=== PATIENT | female | born 1955 | race Caucasian/White ===

== ENCOUNTER 2019-12-07 17:19 | Inpatient (IN) | payer MEDICARE ==
[~2019-12-07] VITALS: Ht 170.2 cm; Wt 59.9 kg
[~2019-12-07 17:19] MED LIST: BACLOFEN10 MG PO; CETIRIZINE HCL5 MG PO; CLARITIN 10 MG10 MG PO; FLUTICASONE PRO16 GM NASAL; IMITREX100 MG PO; KLONOPIN1 MG PO; LEVAQUIN500 MG PO; NEURONTIN 300300 MG PO; PHENERGAN25 M1 PO; PRENATAL LOW IR1 TAB PO; PROBIOTIC1 EAC1 PO; RESTASIS EYE DR30 EA EACH EYE; SEROQUEL200 MG PO; TRAZODONE HCL150 MG PO; VITAMIN D5000 UNIT PO; VITAMIN E400 UNI2 PO; VOLTAREN100 GM TOPICAL; VOLTAREN75 MG PO
--- NOTE | 2019-12-07 19:35 | NUR ---
PT DIRECT ADMIT FROM [facility] AT 1855, ARRIVED VIA WC ACCOMPANIED BY AND REHAB NURSE, TRANSFERED SELF FROM WC TO BED, PT SBA ADJUSTED SELF IN BED, NON OPERABLE FRACTURED PELVIS, WBAT, REG DIET, RESPIRATIONS EVEN/UNLABORED, FALL PRECAUTIONS IN PLACE, FLUIDS/CALL LIGHT WITHIN REACH,
[2019-12-07 21:41] VITALS: BP 154/72
[2019-12-08 02:14] VITALS: BP 154/72; BMI 20.8
--- NOTE | 2019-12-08 06:39 | NUR ---
PT GOT UP DURING THE NIGHT CRYING, NOT TALKING OR FOLLOWING REQUEST, IN OBVIOUS PAIN BUT REFUSED TO TALK TO US, KEPT PT BEHIND NURSES STATION FOR OBSERVATION, AT 0300 PT HAD TO TOILET, TOOK TO HER ROOM GAVE KLONOPIN PLACED IN BED WHERE SHE SLEPT, LIKE FLIPPING A LIGHT SWITCH, PT IS BIPOLAR MANIC/DEPRESSIVE
[2019-12-08 07:44] VITALS: BP 139/68
[2019-12-08 07:50] LABS: HEMATOCRIT 35.4 % (36.0-48.0); HEMOGLOBIN 12.2 g/dL (12-16); LYMPHOCYTES 16.5 % (15-50); MCH 32.9 pg (26.0-34.0); MCHC 34.5 g/dL (31.0-37.0); MCV 95.4 fL (80.0-100.0); MEAN PLATELET VOLUME 9.5 fL (7.4-10.4); PLATELET COUNT 288 10x3/uL (130-400); RBC 3.71 10x6/uL (4.00-5.40); RDW 12.5 % (11.5-14.5); WBC 11.3 10x3/uL (4.8-10.8)
[2019-12-08 08:00] LABS: CALC OSMOLALITY 256 mosm/kg (275-300); CALCIUM 8.2 mg/dL (8.5-10.1); CARBON DIOXIDE 19.8 mmol/L (21.0-32.0); CHLORIDE - SERUM 94 mmol/L (98-107); CREATININE - SERUM 0.5 mg/dL (0.6-1.3); GLUCOSE 103 mg/dL (74-106); POTASSIUM - SERUM 3.6 mmol/L (3.5-5.1); SODIUM 128 mmol/L (136-145); UREA NITROGEN 13 mg/dL (7-18); eGFR NON AFRICAN AMERICAN > 90 mL/min (90-120)
--- NOTE | 2019-12-08 12:37 | NUR ---
GRIMACED WITH TRANSFER. NURSE ATTEMPTED TO GIVE HER PAIN MEDS BUT SHE WOULD NOT ACCEPT IT. SHE WOULD NOT TALK OR FOLLOW COMMANDS OR MAKE EYE CONTACT. CALL LIGHT IN REACH
--- NOTE | 2019-12-08 13:40 | NUR ---
CAME UP HERE AT CASE COORDINATION REQUEST TO WORK WITH PT. SHE WILL NOT ANSWER OR FOLLOW HIS REQUESTS. HE TRIED TO GET HER TO EAT AND DRINK SOMETHING BUT SHE REFUSED. SHE ACTS LIKE SHE IS HURTING THE SUDDENLY STOPS ACTING THAT WAY AND WILL CLOSE HER EYES AND LEAN HER HEAD DOWN........ SAID SHE HAS NEVER ACTED THIS WAY BEFORE. DR ALLEN NOTIFIED OF PT BEHAVIOR AND HE WILL MAKE REFERRAL TO LONGTERM
[2019-12-08 13:51] VITALS: Ht 170.2 cm; Wt 59.9 kg
--- NOTE | 2019-12-08 15:58 | NUR ---
DR SHELTON CALLED BACK AND SAID HE WAS NOT LIQUEFACTION SUPERVISOR BUT OFFERED SUGGESTIONS FOR PT. DR ALLEN BACK ON FLOOR AND SAID NO PROBLEM TO DR SHELTON NOT BEING ABLE TO SEE PT. . DR HERMOSILLO FROM PSYCH CAME OVER TO EVALUATE PT. HE REPORTED THAT HE OFFERED ADMISSION TO PSYCH UNIT TO PT BUT WHO WAS SITTING WITH HER DECLINED ADMISSION.
--- NOTE | 2019-12-08 20:03 | NUR ---
PT ASLEEP NO IMMEDIATE NEEDS NOTED, RESPIRATIONS EVEN/UNLABORED, FALL PRECAUTIONS IN PLACE, FLUIDS/CALL LIGHT WITHIN REACH
--- NOTE | 2019-12-08 23:20 | NUR ---
CALLED TO ROOM PER STUDENT NURSE. NOTED AMAN STANDING UP IN ROOM, SWEATING A LITTLE AND SPEAKING INCOHENTLTY ABOUT DYING, POOPING HER PANTS, AND GETTING PREGRANT. ATTEMPTED TO HAVE PATIENT SIT BACK DOWN ON BED BUT SHE REFUSED. SHE STATED " I CANT SIT DOWN I HAVE TO POOP MY PANTS." I OFFRERED TO TAKE HER TO THE BATHROOM AND CLEAN HER UP AND SHE REFUSED. I CHECKED HER AND SHE DID NOT APPEAR TO HAVE SOILED HER PANTS. I ENCOURAGED HER TO SIT IN WHEELCHAIR INSTEAD AND SHE AGREED AND COMPLIED. SHE BEGAN TELLING ME ABOUT VARIOUS THINGS BUT RARELY KEPT ON TOPIC. SHE KEPT JUMPING FROM SAYING "I WAS , AND "HE HURT ME" TO, "MY NEIGHBOR SAID I WAS GOING TO HELL FOR WHAT I DID" AND "PLEASE DONT HURT ME". I KEPT REDIRECTING HER AND ASSURED HER WE WOULD NOT HURT HER HERE AND THAT SHE WAS SAFE. I SAW HER CALMING DOWN SOME BUT SHE CONTINUED TO SPEAK IRRACTICALLY. I DID CONVINCE HER TO TAKE HER TRAZADONE AND CLONAZIPAM THAT SHE HAD REFUSED EARLIER. AFTER PUTTING THEM IN HER MOUTH SHE STARED INTO SPACE A MOMENT AND DID NOT SWALLOW THEM. SHE WOULD NOT OPEN HER MOUTH ON COMMAND FOR WATER. AFTER 30 SECONDS SHE SWALLOWED THE PILLS WITHOUT WATER. SHE STATED "I CANT TAKE WATER, I CANT SWALLOW" I ENCOURAGED HER TO TAKE JUST A SIP SO SHE COULD GET HER PILLS DOWN. SHE AGREED AND TOOK A SMALL SIP OF WATER. SHE CONTINUED TO SIT IN WHEELCHAIR AND TALK REPEATING HERSELF OVER AND OVER ABOUT HER NEIGHBOR CALLING HER A SLUT, HER POOPING HER PANTS, AND BEING . AT ONE POINT SHE SAID "I WAS DOUBLE ." SHE CONTINUED TO SAY " I'M , I WAS , AND THEN I POOPED MY PANTS AND NOW I'M ." I TRIED TO ASSURE HER SHE WAS NOT , AND THAT WE WOULD TAKE CARE OF HER. I REMINDED HER SHE WAS SAFE. WE ASSISTED HER BACK TO BED AND FOR NOW SHE IS RESTING QUIETLY. WILL CONTINUE TO MONITOR CLOSELY.
--- NOTE | 2019-12-09 14:30 | NUR ---
PATIENT ADMITTED TO REHAB FROM [facility]. PATIENT UNABLE TO PARTICIPATE IN THERAPY AND AMITTED TO [facility]. DC INSTRUCTIONS FAXED TO JAC , AUTH. # [id number] WITH FAX CONFORMATION RECIEVED. AT BEDSIDE
--- NOTE | 2019-12-09 15:15 | NUR ---
WITH PT AND ASSISTING HER IN THE SHOWER. SHE HAS BEEN MORE INTERACTIVE WITH HIM THE LAST FEW HOURS. THIS MORNING SHE WAS CURSING EVERYONE AND REFUSED V/S, BREAKFAST, MEDS AND VISITORS AND THERAPY. SHE IS TALKING TO MORE.
--- NOTE | 2019-12-09 17:12 | RHP ---
PATIENT: BRUNO PASTOR MEDICAL RECORD: [id number] ACCOUNT: [id number] LOCATION:[place] [address] : 53 ADMISSION DATE: 12/07/19 REHABILITATION HISTORY AND PHYSICAL EXAMINATION POST ADMISSION PHYSICIAN EXAMINATION POST ADMISSION PHYSICAL EXAMINATION AND HISTORY AND PHYSICAL ADMITTING DIAGNOSIS: Pubic ramus fracture. HISTORY OF PRESENT ILLNESS: The patient presented to the Emergency Room at [facility] after falling from bed around 1:00 a.m., she had immediate onset of hip pain and inability to bear weight. She has got a history of a right total hip replacement in the past. She was oriented. X-ray showed a displaced right inferior pubic ramus fracture and underlying osteoporosis. She was admitted for pain control, orthopedic consult and rehab. Ortho felt that the pelvic fracture was nondisplaced, some well healed area to her total hips, so there is no surgical requirement there. Currently, she has had prolonged immobility, progressive generalized weakness, especially the right lower extremity affecting her tolerance to PT, very fatigued, has limited flexion and extension of the lower extremities. Proximal muscle strength is decreased. She has ambulated 50 feet with PT using a rolling walker, would like to regain her strength to return home. COMORBIDITIES: Include allergic rhinitis, anemia, anxiety, bipolar, chronic pain, constipation, depression, difficulty in walking, fibromyalgia, weakness, hematuria, chronic back pain, fibromyalgia, and migraine headaches. PAST MEDICAL HISTORY: Significant for fibromyalgia, osteoporosis, irritable bowel syndrome, falls, migraines, chronic UTIs, anemia, anxiety, and depression. PAST SURGICAL HISTORY: Includes gastric bypass, ankle surgery, total hip. ALLERGIES: MORPHINE AND DEMEROL. CURRENT MEDICATIONS: Include trazodone 150 mg at bedtime, Inderal 20 mg at bedtime, Zofran 4 mg as needed, Topamax 50 mg b.i.d., Effexor 150 mg daily, multivitamin daily, propranolol 10 mg daily, Singulair 10 mg daily, cyclosporine eye drops as needed. She is on Vitamin D 2000 units daily, Imitrex 100 mg q.2 hours p.r.n. severe migraine headache, milk of mag p.r.n. constipation, Percocet 5/325 as needed, Klonopin 0.5 mg b.i.d., ascorbic acid 250 mg every 48 hours, and will probably get her back on her Seroquel during her stay. HABITS: No alcohol or tobacco use. FAMILY HISTORY: Noncontributory. SOCIAL HISTORY: The patient lives at home with her . He works at [employer]. She has recently been quite depressed on her current situation. REVIEW OF SYSTEMS: GENERAL: The patient is just not very talkative at this time, pretty upset during her stay. HEENT: Normocephalic and atraumatic. Mucosa moist. NECK: Supple. No lymphadenopathy. HISTORY AND PHYSICAL [id number] PASTORBRUNO Patterson LUNGS: Clear at this time. HEART: Regular rate and rhythm. No murmurs, rubs, or gallops. ABDOMEN: Soft, benign, and nondistended. Positive bowel sounds x 4. EXTREMITIES: No clubbing, cyanosis or edema. Does have pain to palpation around her pelvis. NEUROLOGIC: She has got proximal muscle strength weakness and psychiatry while she is definitely in a bad situation. LABORATORY DATA: Admit labs show white count of 11.3, H&H of 12 and 35, and platelet count was noted to be 288. Her sodium is 128, potassium 3.6, BUN and creatinine of 13 and 0.5, and blood sugar is noted to be 103. ASSESSMENT: This is a 64-year-old female patient admitted to rehab with a working diagnosis of a pubic ramus fracture. The patient has potential to make improvement. We instituted the following multidisciplinary therapies not limited to physical, occupational, respiratory, speech, nutritional services, prosthetics and orthotics. Given her complex medical condition and risk of further medical complications, rehabilitation services cannot be provided at a level of care such as nursing home facility. PLAN: 1. Ad[facility] for [facility] inpatient therapy to include the following disciplines; A. Physical therapy to improve gait, all transfer skills and bed mobility to a modified independent level. B. Occupational therapy to improve activities of daily living. C. Case management to help with discharge planning and placement options. D. Nutrition to assist with nutritional needs. E. Rehabilitation nursing to assist in monitoring the patient's underlying medical conditions and to assist with any type of bowel or bladder management. 2. The patient's current medication and medical care will be continued, and was placed on standard fall precautions. 3. The patient's estimated length of stay is approximately 7-10 days. 4. We will discuss the patient's care team staff meeting this week and we will discuss with her , may need a [facility] consult during her stay. I will follow that up. TRANSINT:[id number] Voice Confirmation ID: [id number] DOCUMENT ID: [id number] FILIPPO notes whether there has been none or any medical/functional change since admission: - No change since prescreen. FILIPPO attests patient continues to be appropriate for IRF: - Continues to be appropriate. HISTORY AND PHYSICAL [id number] BRUNO PASTOR,SYLVIA BOLIVAR MD at 1712 CC: [id number] DICTATION DATE: 12/08/19 1350 SAFETY MANAGER: 12/08/19 1501 ADM IN [place] [id number] [place] [address]
[2019-12-09] MEDS ORDERED: CETIRIZINE HCL5 MG PO (22:54)
[2019-12-09] MEDS ORDERED: KLONOPIN1 MG PO (22:56)
[2019-12-09] MEDS ORDERED: VOLTAREN100 GM TOPICAL (22:58)
[2019-12-09] MEDS ORDERED: FLUTICASONE PRO16 GM NASAL (23:04)
[2019-12-09] MEDS ORDERED: GABAPENTIN300 MG PO (23:05)
[2019-12-09] MEDS ORDERED: CYCLOGYL15 ML EACH EYE (23:12)
[2019-12-09] MEDS ORDERED: PROBIOTIC1 EAC1 PO (23:13)
[2019-12-09] MEDS ORDERED: LEVOFLOXACIN500 MG PO (23:13)
[2019-12-09] MEDS ORDERED: PRENAVITE1 TAB PO (23:14)
--- NOTE | 2019-12-12 09:13 | CN ---
PATIENT NAME:BRUNO PASTOR MEDICAL RECORD: [id number] : 53 LOCATION:[id number] ADMIT DATE: 12/07/19 ACCOUNT: [id number] CONSULTING PHYSICIAN: DEBBIE MEEKS MD REFERRING PHYSICIAN: SYLVIA ALLEN MD DATE OF CONSULTATION: 12/08/2019 IDENTIFYING DATA: The patient is 64 years old and she is admitted to the hospital on a voluntary basis. CHIEF COMPLAINT: Depression. HISTORY OF PRESENT ILLNESS: The patient rolled out of bed and broke her hip few days ago. She was admitted to [facility] and the fracture is nonsurgical and she was referred here for rehabilitative services. She arrived here yesterday and since then has been either nonverbal or minimally verbal. She has been withdrawn and not interacting and certainly not participating in rehab services. She does have a psychiatric history and sees Dr. Saucedo in [place]. Apparently, he has diagnosed her with bipolar disorder and he has her on Seroquel, trazodone, Topamax, Effexor, and Klonopin. The patient has done well with this up until the fall. Her is present and in the room with her when I go to see her. He tells me that she was starting to decline emotionally a couple of days before the fall from the bed, but this is very much different. She was actually talking to him when I entered the room, but shortly after that she just stopped talking and is not actively interviewable. There is no evidence that she wants to hurt herself and she has no history of trying to do so. There is no evidence that she wants to hurt anyone else and again she has no history of trying to do that. She is not responding to persons not present, but it is really not possible to say if she is in full touch with reality. She just simply looks withdrawn and introverted in a way that would be consistent with depression. ASSESSMENT: Bipolar disorder, depressed. PLAN: I have offered the patient and her inpatient psychiatric care here, but they do not want that. They were also offered inpatient psychiatric care elsewhere and they do not want that either. They do not want her to be in a psychiatric hospital. Given that circumstance, there is not much that I have to offer. I have reviewed her medications, I think they are appropriate. Certainly, changing her to another antidepressant might be a reasonable approach, but she has been followed by Dr. Saucedo for a long time and if these circumstances or this condition is situational, I would think she would come out of it pretty quickly. Her symptoms are appropriate for inpatient care, but again they have declined it. The symptoms do not require that and by that I mean, there are no grounds to commit her against her will and over the objections of her . Obviously since she cannot participate in physical therapy, she will not be able to stay on the physical therapy sol, so I am not sure what other options she has. Again, I have offered her inpatient treatment and the declined on her behalf, she did not respond. That offer is still open should circumstances change. TRANSINT:[id number] Voice Confirmation ID: [id number] DOCUMENT ID: [id number] CONSULT REPORT [id number] BRUNO PASTOR, DEBBIE JIMENEZ at 0913 CC: [id number] DICTATION DATE: 12/08/19 162 PILEDRIVER CARPENTER: 12/08/19 1825 DIS IN 12/09/19 [facility] [address] [place] [address]
== END 2019-12-09 18:37 | DRG 561 ==
LOC: D.REHAB 17:19
PROVIDERS: ADMIT Emergency Medicine; ATTEND Emergency Medicine
DX: S32.591D Other specified fracture of right pubis, subsequent encounter for fracture with routine healing (principal); W06.XXXD Fall from bed, subsequent encounter; J30.9 Allergic rhinitis, unspecified; D64.9 Anemia, unspecified; F31.9 Bipolar disorder, unspecified; K59.00 Constipation, unspecified; F32.9 Major depressive disorder, single episode, unspecified; F41.9 Anxiety disorder, unspecified; R26.2 Difficulty in walking, not elsewhere classified; M79.7 Fibromyalgia; R53.1 Weakness; R31.9 Hematuria, unspecified; G89.29 Other chronic pain

== ENCOUNTER 2019-12-09 15:46 | Inpatient (IN) | payer MEDICARE ==
--- NOTE | 2019-12-09 18:46 | NUR ---
PATIENT ARRIVED TO RETIREMENT UNIT AT 18:30 VIA WHEELCHAIR. DX: ALTERED MENTAL STATUS WITH BEHAVIOR DISTURBANCE. HX: BIPOLAR DEPRESSION. SHE FELL A COUPLE OF DAYS AGO AND HAS AN INOPERABLE PELVIC FRACTURE. CODE STATUS: FULL CODE WORD: 8021. SHE IS DIFFICULT TO COMPREHEND OR REDIRECT AT THIS TIME. WILL MONITOR FOR SAFETY AND CHANGES IN BEHAVIOR.
[2019-12-09 20:00] VITALS: BP 132/54
--- NOTE | 2019-12-09 21:39 | NUR ---
PATIENT HAS BEEN RANTING AND VERY LOUDLY REPEATING, "I'M SORRY MOMMY. YOU DID NOT DO IT." HALDOL 2 MG AND ATIVAN 0.5 MG IM GIVEN IN LEFT DELTOID.
--- NOTE | 2019-12-09 22:00 | NUR ---
MEDICATION WAS EFFECTIVE. LYING IN BED WITH EYES CLOSED.
[2019-12-09] MEDS ORDERED: CETIRIZINE HCL5 MG PO (22:54)
[2019-12-09] MEDS ORDERED: KLONOPIN1 MG PO (22:56)
[2019-12-09] MEDS ORDERED: VOLTAREN100 GM TOPICAL (22:58)
[2019-12-09] MEDS ORDERED: FLUTICASONE PRO16 GM NASAL (23:04)
[2019-12-09] MEDS ORDERED: GABAPENTIN300 MG PO (23:05)
[2019-12-09] MEDS ORDERED: CYCLOGYL15 ML EACH EYE (23:12)
[2019-12-09] MEDS ORDERED: LEVOFLOXACIN500 MG PO (23:13)
[2019-12-09] MEDS ORDERED: PROBIOTIC1 EAC1 PO (23:13)
[2019-12-09] MEDS ORDERED: PRENAVITE1 TAB PO (23:14)
[2019-12-10 02:15] VITALS: BP 132/54; BMI 20.4
[2019-12-10 08:17] LABS: CHOL - HDL RATIO 2.7 ratio (2.3-4.1); LDL-HDL RATIO 1.6 ratio (1.5-3.5); THYROID STIMULATING HORMONE 1.62 uIU/mL (0.36-3.74)
[2019-12-10 08:59] VITALS: Wt 61.5 kg
[2019-12-10 09:18] VITALS: BP 113/54
--- NOTE | 2019-12-10 10:07 | NUR ---
PT SITTING IN W/C WITH HEAD DOWN ON THE HEAD ON THE TABLE. PT DOES NOT ANSWER STAFF WHEN ENGAGED. WHEN Chapito PAIZ, HEEL PAINTER ATTEMPTED TO TALK TO PT. SHE DID NOT RESPOND. NURSE HAD TO ASSIST PT INTO A UPRIGHT POSITION. PT DID NOT ENGAGE WITH THE HEEL PAINTER. PT DENIES PAIN. PT ADMITTED FROM REHAB DUE TO FRACTURE PELVIS. PT IS CONFUSED AND DISORIENTED. PT CAN NOT MAKE NEEDS KNOWN. PT APPEARS TO BE TEARFUL. PT REQUIRES 2X ASSISTANCE. CHAIR ALARM IN PLACE AND ACTIVE. WILL CONT PLAN OF CARE.
--- NOTE | 2019-12-10 14:11 | NUR ---
PT SITTING IN W/C DOUBLING OVER WITH HEAD DOWN. MHT MOVED PT BACK TO THE TABLE TO LAY HER HEAD ON THE TABLE. PT REFUSED TO ACKNOWLEDGE NURSE INQUIRES ABOUT IF SHE WAS HURTING OR IF SHE HAD A HEADACHE. PT DID NOT ANSWER NURSE. PT CONTS TO LAY HEAD DOWN ON THE TABLE AND NOT TALK TO ANYONE. WILL INQUIRE AT ANOTHER TIME.
--- NOTE | 2019-12-10 20:00 | NUR ---
RECEIVED IN DAYROOM SITTING IN WHEECHAIR IN ALMOST A POSITION, NO RESPONSE VERBALLY TO STAFF. REFUSED HER MEDICATIONS, EXCEPT VOLTARIAN CREAM AND EYE DROPS. REDIRECT AND REORIENT NEEDED. WILL CPOC.
[2019-12-10 20:03] VITALS: BP 113/54
[2019-12-10 20:58] LABS: BILIRUBIN NEGATIVE (NEGATIVE); KETONE SMALL mg/dL (NEGATIVE); NITRITE NEGATIVE (NEGATIVE); UROBILINOGEN NORMAL (NORMAL)
[2019-12-10 21:05] LABS: EPITHELIAL CELLS 0-5 /hpf (0-5)
[2019-12-10 21:06] LABS: BACTERIA FEW /hpf (NONE SEEN)
[2019-12-10 21:28] VITALS: BP 169/87
--- NOTE | 2019-12-10 23:00 | NUR ---
INCONTINENT OF WATERY DIARRHEA, BROWN STOOL.
--- NOTE | 2019-12-11 03:00 | NUR ---
PATIENT WAS LYING IN A LARGE AMOUNT OF JELLY LIKE STOOL, LIQUID BROWN COLOR. TOTAL BATH AND LINEN CHANGE DONE.
[2019-12-11 06:29] LABS: BASOPHILS 0 % (0-2); EOSINOPHILS 0.1 % (0-7); HEMATOCRIT 32.5 % (36.0-48.0); HEMOGLOBIN 11.1 g/dL (12-16); IMMATURE GRANULOCYTES 0.3 % (0-5); MCH 32.6 pg (26.0-34.0); MCHC 34.2 g/dL (31.0-37.0); MCV 95.6 fL (80.0-100.0); MEAN PLATELET VOLUME 9.1 fL (7.4-10.4); MONOCYTES 9.1 % (2-11); NEUTROPHILS 74.5 % (40-80); PLATELET COUNT 337 10x3/uL (130-400); RDW 12.7 % (11.5-14.5); WBC 12.3 10x3/uL (4.8-10.8)
[2019-12-11 08:53] VITALS: BP 119/46
--- NOTE | 2019-12-11 12:00 | NUR ---
RECEIVED IN HALLWAY OUTSIDE OF NURSES STATION. CALM AND COOPERTIVE WITH CARE AND ASSESSMENT. RESTLESS AND ANXIOUS. TALKS TO STAFF AT TIMES. STILL REFUSING MEDICATIONS. CRYING SPELLS AT TIMES. REDIRECT AND REORIENT NEEDED. EATING AT THIS TIME. CONTINUE PLAN OF CARE.
--- NOTE | 2019-12-11 13:50 | NUR ---
PT C/O CHEST PAIN. V/S STABLE. EKG PERFORMED. EKG SHOWED NORMAL SINUS RHYTHM. DR. YOUNG NOTIFIED. NO NEW ORDERS NOTED. COPY OF EKG PLACED IN CHART.
[2019-12-11 20:03] VITALS: BP 178/82
--- NOTE | 2019-12-11 20:59 | NUR ---
RECEIVED IN DAYROOM. SITTING CALMLY WITH PEERS AT HER SIDE. CALM AND COOPERATIVE WITH CARE AND ASESSMENT. ACTIVE IN GROUP. REDIRECT AND REOREINT NEEDED. CONTINUES TO SIT CALMLY IN DAYROOM. CONTINUE PLAN OF CARE.
--- NOTE | 2019-12-12 08:02 | NUR ---
REC'D PT IN HALLWAY BY NURSES STATION. AWAKE AND ALERT TO PERSON ONLY. CALM AND COOPERATIVE WITH ASSESSMENT AT THIS TIME. PRESCRIBED MEDS PROVIDED ORDERED. MED COMPLIANT. REDIRECT AND REORIENT NEEDED. FALL PRECAUTIONS IN PLACE. WILL CPOC.
[2019-12-12 08:49] VITALS: BP 126/44
--- NOTE | 2019-12-12 09:13 | PSY ---
PATIENT NAME:BRUNO PASTOR MEDICAL RECORD: [id number] : 53 LOCATION:[facility] ADMISSION DATE: 12/09/19 ACCOUNT: [id number] PSYCHIATRIC EVALUATION DATE OF EVALUATION: 12/10/19 IDENTIFYING DATA: The patient is a 64-year-old female who appears slightly older than her age. The patient was referred from inpatient rehabilitation and is admitted on a voluntary basis. CHIEF COMPLAINT: Depression. HISTORY OF PRESENT ILLNESS: It was reported that the patient initially fell from her bed and injured a displaced right inferior pubic ramus fracture with underlying osteoporosis. This was stated that it did not need to be surgically repaired and that it would heal with time. The patient then was admitted for inpatient rehabilitation where she did not participate. She was very rude to team and did not participate in any other rehabilitation services. The patient continued to be very tearful. The patient was withdrawn and not interacting and not participating in rehabilitation services. The patient does have a psychiatric history. The patient had been diagnosed with bipolar, was on Seroquel, trazodone, Topamax, Effexor and Klonopin. It was reported that this patient had done well up until this fall. Spouse reports that she started to decline emotionally a couple days before the fall from bed and that she is very much different now and there was evidence that she wanted to hurt herself. The patient's reports that she did not find any interest in doing anything, had a decreased appetite, felt that she may have lost some weight. PAST MEDICAL HISTORY: Includes fibromyalgia, osteoporosis, irritable bowel syndrome, falls, migraines, chronic UTIs, anemia, anxiety. PAST PSYCHIATRIC HISTORY: Anxiety, depression, bipolar. FAMILY HISTORY: Unknown. TRAUMA: The patient's trauma is unknown. The patient unwilling to discuss. ALLERGIES: MORPHINE AND MEPERIDINE. CURRENT MEDICATIONS: Include baclofen 10 mg tablet, Claritin 10 mg, gabapentin 300 mg 3 times a day, trazodone 150 mg at bedtime, clonazepam 1 mg tablet at bedtime, Voltaren 75 mg twice a day, Seroquel 200 mg, Voltaren 1% topical, Imitrex, Phenergan, probiotic, Zyrtec, vitamin D3, vitamin E, iron, fluticasone propionate nasal spray, Restasis and Levaquin. SOCIAL HISTORY: The patient is . The patient does reports she did graduate from high school. The patient did not articulate her career field. The patient denies having any children; however, there is one son that is reported. There appears to be no history of drug or alcohol abuse. MENTAL STATUS EXAM: The patient's general appearance is disheveled. The patient is alert and oriented to person. The patient's speech is impaired articulation, very soft, very low tone, low volume. Her associations are loose. Her eye contact is poor. Her judgment and insight is impaired. The patient appears to have some poverty of thought. Her mood is depressed, anxious, and easily agitated. Her affect is flat, blunt, narrow in range. No tremors were noted. Her anxiety is [id number]. Her memory is difficult to assess. The patient does not appear to be attending to either visual or auditory hallucinations. Her strengths include her family support. Her weakness include psychosocial stressors. DIAGNOSES: AXIS I: Bipolar disorder, depressed, differential altered mental status, differential generalized anxiety disorder, major depression, recurrent, severe, dementia. AXIS II: None. AXIS III: Fibromyalgia, osteoporosis, irritable bowel syndrome, migraines, anemia. AXIS IV: Moderate. AXIS V: Global assessment of functioning is 30. PLAN: At this time, the patient is going to be admitted to the hospital secondary to her depressed behavior associated with severe depression, bipolar. She will be comprehensively evaluated for mood, thought and cognition, and she will be treated with both mood stabilizing, thought and memory enhancing medication. Her long-term prognosis is guarded. Dictated By: Myriam Pettit APN I have interviewed/examined the above patient and agree with these documented findings. TRANSINT:[id number] Voice Confirmation ID: [id number] DOCUMENT ID: [id number] Dictated By: MYRIAM PETTIT I have interviewed/examined the above patient and agree with these documented findings. DEBBIE MEEKS MD at 0913 CC: [id number] DICTATION DATE: 12/10/19 0956 RIP TAILER: 12/10/19 1359 ADM IN [place] [address] [place] [address]
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
--- NOTE | 2019-12-12 17:39 | NUR ---
DR. YOUNG PRESENT WITH PT AT THIS TIME. LABS ORDERED PER DR. YOUNG. WAITING ON LAB TO BE DRAWN. WILL CPOC.
--- NOTE | 2019-12-12 17:54 | NUR ---
THIS NURSE SPOKE WITH PT'S JEREMY REGARDING PT'S STATUS CHANGE. CONTACT # UPDATED [phone]. PHARMACY IS [facility] ON [address] PER JEREMY. INFORMED ATTENDING MD PRESENT AND LABS ORDERED. AWAITING ON LABS TO DRAWN AT THIS TIME.
[2019-12-12 19:06] LABS: CALC OSMOLALITY 268 mosm/kg (275-300); CALCIUM 8.9 mg/dL (8.5-10.1); CARBON DIOXIDE 22.7 mmol/L (21.0-32.0); CHLORIDE - SERUM 96 mmol/L (98-107); CREATININE - SERUM 0.7 mg/dL (0.6-1.3); GLUCOSE 99 mg/dL (74-106); POTASSIUM - SERUM 3.2 mmol/L (3.5-5.1); SODIUM 134 mmol/L (136-145); UREA NITROGEN 15 mg/dL (7-18); eGFR NON AFRICAN AMERICAN 89 mL/min (90-120)
--- NOTE | 2019-12-12 19:26 | NUR ---
RECEIVED IN DAYROOM. SITTING IN A RECLING CHAIR AT THE TABLE. APPEARS TO BE SEDATED. NOT RESPONDING TO VERBAL STIMULUS. ENCOURAGE TO DRINK FLUIDS. CONTINUES TO SIT CALMLY IN DAYROOM. CONTINUE PLAN OF CARE.
[2019-12-12 19:27] LABS: BASOPHILS 0 % (0-2); EOSINOPHILS 0.2 % (0-7); HEMATOCRIT 35.3 % (36.0-48.0); HEMOGLOBIN 12.4 g/dL (12-16); IMMATURE GRANULOCYTES 0.3 % (0-5); LYMPHOCYTES 24.5 % (15-50); MCH 33.3 pg (26.0-34.0); MCHC 35.1 g/dL (31.0-37.0); MCV 94.9 fL (80.0-100.0); MEAN PLATELET VOLUME 9.3 fL (7.4-10.4); MONOCYTES 10.6 % (2-11); NEUTROPHILS 64.4 % (40-80); PLATELET COUNT 333 10x3/uL (130-400); RBC 3.72 10x6/uL (4.00-5.40); RDW 12.8 % (11.5-14.5)
[2019-12-12 20:28] VITALS: BP 176/68
--- NOTE | 2019-12-13 01:38 | NUR ---
PT RESPONSIVE WITH STAFF. EATING PUDDING AND DRINKING SPRITE. MORE ALERT AND ABLE TO ANSWER QUESTIONS ABOUT HX. PT RESTING CALMLY IN BED. WILL MONITOR CLOSELY.
--- NOTE | 2019-12-13 02:27 | NUR ---
PT IS RESTLESS. BED ALARM SOUNDED AND PT WAS OUT OF BED WALKING. UNABLE TO REDIRECT. ADMINISTERED PRN ATIVAN 0.5 MG IM. PLACED IN A GERICHAIR. PT ABLE TO VOICE NEEDS AND WANTS AT THIS TIME. WILL CONTINUE TO MONITOR.
--- NOTE | 2019-12-13 03:10 | NUR ---
PT RESTING CALMLY WITH EYES OPEN IN HALLWAY BY NURSES STATION IN A GERICHAIR. NO DISTRESS NOTED. WILL CONTINUE TO MONITOR.
[2019-12-13 09:17] VITALS: BP 137/45
--- NOTE | 2019-12-13 12:00 | NUR ---
RECEIVED IN HALLWAY OUTSIDE OF NURSES STATION. SMILING AND WAVING AT EVERYONE. CALM AND COOPERATIVE WITH CARE AND ASSESSMENT. COMPLIANT WITH MEDICATIONS. TALKING TO STAFF AT TIMES BUT STILL NONVERBAL AT TIMES. REDIRECT AND REORIENT NEEDED. EATING AT THIS TIME. CONTINUE PLAN OF CARE.
--- NOTE | 2019-12-13 17:30 | NUR ---
PATIENT VERY CONFUSED. ANXIOUS. AGITATED. THINKS EVERYONE IS IN HER HOUSE AND EVERYONE IS HAVING AN AFFAIR WITH HER . PRN ATIVAN 0.5 MG PO GIVEN FOR INCREASING ANXIETY.
[2019-12-13 19:53] VITALS: BP 130/85
--- NOTE | 2019-12-13 21:54 | NUR ---
RECEIVED IN DAYROOM. SITTING IN A CHAIR WITH PEERS AT HER SIDE. CALM AND COOPERATIVE WITH CARE AND ASSESSMENT.CONFUSED. NOT CRYING AT THIS TIME. REDIRECT AND REORIENT NEEDED. RESTING IN BED WITH EYES CLOSED AT THIS TIME. CONTINUE PLAN OF CARE.
[2019-12-14 06:11] LABS: RAPID PLASMA REAGIN Non Reactive (Non Reactive)
[2019-12-14 06:45] LABS: BASOPHILS 0 % (0-2); EOSINOPHILS 1.1 % (0-7); HEMATOCRIT 32.3 % (36.0-48.0); IMMATURE GRANULOCYTES 0.2 % (0-5); LYMPHOCYTES 29.3 % (15-50); MCHC 34.1 g/dL (31.0-37.0); MEAN PLATELET VOLUME 8.9 fL (7.4-10.4); MONOCYTES 6.5 % (2-11); NEUTROPHILS 62.9 % (40-80); PLATELET COUNT 317 10x3/uL (130-400); RBC 3.33 10x6/uL (4.00-5.40); RDW 13.1 % (11.5-14.5)
[2019-12-14 06:53] LABS: WBC 8.1 10x3/uL (4.8-10.8)
[2019-12-14 07:06] LABS: CALC OSMOLALITY 276 mosm/kg (275-300); CALCIUM 8.4 mg/dL (8.5-10.1); CARBON DIOXIDE 25.5 mmol/L (21.0-32.0); CHLORIDE - SERUM 103 mmol/L (98-107); CREATININE - SERUM 0.6 mg/dL (0.6-1.3); GLUCOSE 105 mg/dL (74-106); SODIUM 138 mmol/L (136-145); UREA NITROGEN 14 mg/dL (7-18); eGFR NON AFRICAN AMERICAN > 90 mL/min (90-120)
--- NOTE | 2019-12-14 08:22 | PN ---
PATIENT:BRUNO PASTOR MEDICAL RECORD: [id number] LOCATION:[facility] ADMISSION DATE: 12/09/19 PROGRESS NOTE DATE OF SERVICE: 12/13/2019 SUBJECTIVE: The patient's case was discussed with staff. She has no new complaint. OBJECTIVE: The patient is flat, blunted, and withdrawn. She is still not sleeping adequately. This is despite the use of a significant dose of medication at bedtime. She does have an existing diagnosis of bipolar disorder. I am going to start her on lithium. [place] is going to be used to treat her underlying mood instability. She will be monitored for clinical changes associated with its use. NTS:[id number] Voice Confirmation ID: [id number] DOCUMENT ID: [id number] DEBBIE MEEKS MD at 0822 CC: [id number] DICTATION DATE: 12/13/19 1646 GRAPPLE OPERATOR: 12/14/19 0106 ADM IN [place] [id number] [place] [id number]
--- NOTE | 2019-12-14 08:51 | NUR ---
Nutrition Follow-up: Diet: Regular PO intake: ~37% average x last 9 meals Last BM: 12/11/19 x 2. Wt: 129# (12/11/19); Admit Wt: 130# (12/10/19) Meds noted: lactobacillus/acidophilus. Labs noted: K 3.0(L) Patient with inadequate oral intake a this time. Recommend continue current diet. Will add Ensure TID with meals. Recommend continue encouraged PO intake at meal times. Hopefully probiotic will help with constipation. RD following.
[2019-12-14 09:15] VITALS: BP 130/57
--- NOTE | 2019-12-14 10:02 | NUR ---
RECEIVED THIS AM SITTING IN CHAIR IN HALLWAY AT [facility].SMILING TODAY.VERY CONFUSED.COMPLIANT WITH STAFF.HAS UNSTEADY GAIT,REQUIRES ASSIST TO BATHROOM,DINNING ROOM,ETC.TALKS ABOUT MOLESTATION OF [place],TEARFUL.WILL CONTINUE WITH CURRENT PLAN OF CARE,MONITOR FOR CHANGES AND SAFETY.
[2019-12-14 20:11] VITALS: BP 132/67
--- NOTE | 2019-12-14 20:30 | NUR ---
PATIENT WAS IN BATHROOM SITTING ON COMMODE, STRAINING AND HAVING A BOWEL MOVEMENT. SHE HAS A RECTOCELE THT PROTRUDES OUT UPON STRAINING, BUT WITH MOIST WIPE IT RETURNS INSIDE RECTUM. NO BLEEDING NOTED. HER STOOL WAS SOFT FORMED, BUT NOT CONSTIPATED. PATIENT AWARE OF HAVING THE RECTOCELE.
--- NOTE | 2019-12-14 22:34 | NUR ---
B) Patient is alert and oriented to person, very confused, I) Administered scheduled medications as ordered, monitored for safety R) mediation compliant, pleasant and friendly toward staff, P) Continue plan of care.
--- NOTE | 2019-12-15 08:48 | PN ---
PATIENT:BRUNO PASTOR MEDICAL RECORD: [id number] LOCATION:[facility] ADMISSION DATE: 12/09/19 PROGRESS NOTE DATE OF SERVICE: 12/14/2019 SUBJECTIVE: The patient's case was discussed with staff. She has no new complaint. OBJECTIVE: The patient is not speaking to me. She is selectively mute, probably because of the severe nature of her depression associated with a bipolar disorder. I am prescribing Klonopin and trazodone to assist with sleep consolidation. She has been started on lithium and I will check the dose of that soon. The Seroquel is being prescribed for its antipsychotic effect, but it has not really had much effect, so I am going to change the antipsychotic to a different medication, I will try Zyprexa. I am also going to increase the sertraline. The patient is unable to care for herself and is significantly and seriously impaired. TRANSINT:[id number] Voice Confirmation ID: [id number] DOCUMENT ID: [id number] DEBBIE MEEKS MD at 0848 CC: [id number] DICTATION DATE: 12/14/19 1540 WIRE STITCHER: 12/14/192023 ADM IN [facility] [address] [id number]
[2019-12-15 10:00] VITALS: BP 136/73
--- NOTE | 2019-12-15 12:00 | NUR ---
pt sitting at table talking with staff member at this time. pt is more alert and awake. pt is still confused and oriented to self only. pt is friendly with staff and peers. pt can make some needs known. pt can answer some questions appropriately. flat affect noted. pt assist with tranfers and couple of sets with assistance. pt is compliant with meds, vitals and assessments. no crying noted thus far of shift. chair alarm in place and active. will cont plan of care.
--- NOTE | 2019-12-15 12:11 | NUR ---
EATING LUNCH AT PRESENT TIME.SWALLOW EVAL WAS DONE WITH NO NEW RECOMENDATIONS.IS ORIENTED TO SELF WITH CONFUSION.IS COMPLIANT WITH STAFF AND MEDS.WILL CONTINUE WITH CURRENT PLAN OF CARE,MONITOR FOR CHANGES AND SAFETY.
--- NOTE | 2019-12-15 17:59 | NUR ---
PELVIC U/S ORDERED FOR PESSARY PLACEMENT. I CALLED DR THOMAS, RADIOLOGIST NON DESTRUCTIVE TESTING ENGINEER. CANCEL U/S. THIS IS NOT AN U/S EXAM. PT NEEDS A PELVIC EXAM. NOTIFIED CARLTON PARKINSON AT 1800. MEENA BARKER
[2019-12-15 18:10] LABS: CALCIUM 8.5 mg/dL (8.5-10.1); CARBON DIOXIDE 21.4 mmol/L (21.0-32.0); POTASSIUM - SERUM 3.4 mmol/L (3.5-5.1)
--- NOTE | 2019-12-15 18:38 | NUR ---
[facility] LABS DRAWN K+ LAB- 3.4. [facility] ORDER CALLED FOR 40 mEq ONE TIME AND REDRAW LABS 4 HOURS AND IN THE A.M. K+ mEq ADMINISTERED PER PROTOCAL. LABS IN THE COMPUTER ACCORDING TO PROTOCAL.
[2019-12-15 20:03] VITALS: BP 145/64
--- NOTE | 2019-12-16 02:32 | NUR ---
B) Patient is alert and oriented to person, more alert this shift, able to make needs known, I) Administered scheduled medications as ordered, monitored for safety, R) Mediation compliant, calm and cooperative, P) Continue plan of care.
[2019-12-16 07:46] VITALS: BP 123/48
[2019-12-16 08:12] LABS: ANION GAP 11.2 mmol/L (8-16); CALCIUM 7.6 mg/dL (8.5-10.1); CARBON DIOXIDE 25.4 mmol/L (21.0-32.0); CREATININE - SERUM 0.9 mg/dL (0.6-1.3); POTASSIUM - SERUM 3.6 mmol/L (3.5-5.1)
--- NOTE | 2019-12-16 09:09 | PN ---
PATIENT:BRUNO PASTOR MEDICAL RECORD: [id number] LOCATION:[facility] ADMISSION DATE: 12/09/19 PROGRESS NOTE DATE OF SERVICE: 12/15/2019 SUBJECTIVE: The patient's case was discussed with staff. She has no new complaint. OBJECTIVE: The patient is much better today. She is interacting in a cooperative way and making sense. She describes herself as having been in some kind of fog that has been lifting. ASSESSMENT: Bipolar disorder, depressed. PLAN: I am going to order a lithium level and we will continue to taper her Seroquel down and her Zyprexa up. NTS:[id number] Voice Confirmation ID: [id number] DOCUMENT ID: [id number] DEBBIE MEEKS MD at 0909 CC: [id number] DICTATION DATE: 12/15/19 1505 FUGITIVE DETECTIVE: 12/15/192053 ADM IN [facility] [address] [place] [address]
--- NOTE | 2019-12-16 15:35 | NUR ---
PHYSICAL THERAPY EVALUATED PT THIS SHIFT. PT WALKED WELL WITH A WALKER.
[2019-12-16 20:00] VITALS: BP 122/54
[2019-12-16 20:33] VITALS: BP 128/59
--- NOTE | 2019-12-16 20:57 | NUR ---
B.) PT IS ALERT AND ORIENTED TO SELF ONLY. SHE IS AMBULATING BETTER WITH A WALKER. SHE IS ABLE TO VOICE NEEDS AND WANTS. SHE IS RECEIVED IN THE DAYROOM IN A GERICHAIR. SHE IS SOCIAL AND INTEREACTIVE WITH A BRIGHT AFFECT. I.) PROVIDED PM MEDICATIONS PRESCRIBED. REDIRECT NEEDED. R.) COMPLIANT WITH ALL MEDICATIONS. EASY TO REDIRECT. P.) WILL CONTINUE TO MONITOR.
--- NOTE | 2019-12-17 07:46 | NUR ---
The patient is awake and oriented x3, she is pleasant and calm, she is in a darek chair, but she is able to walk with a walker and assistance. She is pleasant and she has not shown any depression this am. She is interacting with staff and peers. Provide prescribed meds. The patient is compliant with meds. Continue to monitor her mood and behavior. Continue POC.
[2019-12-17 08:12] VITALS: BP 136/69
--- NOTE | 2019-12-17 13:16 | NUR ---
The patient has a red sheared area in between her right buttock and coccyx that measures about 4cm x 4cm, she asked the nurse to apply a bandage on her now. Applied a mepilex to her coccyx area. She is up ambulating with a walker.
--- NOTE | 2019-12-17 21:29 | NUR ---
B) Patient is alert and oriented to person and place, calm and cooperative I) Administered scheduled medications as ordered, assisted with needs, R) Mediation compliant, pleasant and friendly toward staff, P) Continue plan of care.
[2019-12-17 21:45] VITALS: BP 119/68
[2019-12-18 08:11] VITALS: BP 135/44
--- NOTE | 2019-12-18 10:26 | NUR ---
The patient is awake and alert, she is pleasant and she is oriented x3. Asked her the reason she was here and she said "To get rehab." Explained to her that she is getting PT, but she is also here as she was having depression. She said "Oh, yea, that's true." Provide prescribed meds. The patient is compliant with meds. She is smiling and talkative with staff and peers. She ambulates with a walker and she is doing well with someone standing by her. She is able to toilet and feed herself. Continue POC.
--- NOTE | 2019-12-18 20:32 | NUR ---
RECEIVED IN DAYROOM. SITTING IN A CHAIR WITH PEERS AT HER SIDE. CALM AND COOPERATIVE WITH CARE AND ASSESSMENT. SOCIAL AT TIMES. REDIRECT AND REORIENT NEEDED. SITTING IN GROUP AT THIS TIME. CONTINUE PLAN OF CARE.
[2019-12-18 20:41] VITALS: BP 123/60
[2019-12-19 09:00] VITALS: BP 116/45
--- NOTE | 2019-12-19 12:10 | NUR ---
ORIENTED .COMPLIANT WITH STAFF AND MEDS.AMBULATES WITH ROLLING WALKER.NO BEHAVIORS OBSERVED.WILL CONTINUE WITH CURRENT PLAN OF CARE,MONIOTR FOR CHANGES AND SAFETY.
--- NOTE | 2019-12-19 19:32 | NUR ---
RECEIVED IN DAYROOM. SITTING IN A CHAIR WITH PEERS AT HER SIDE. SOCIAL. ALERT AND ORIENTED. CALM AND COOPERATIVE WITH CARE AND ASSESSMENT. ENCOURAGE TO EXPRESS NEEDS. CONTINUES TO BE SOCIAL WITH PEERS. CONTINUE PLAN OF CARE.
[2019-12-19 20:06] VITALS: BP 112/36
[2019-12-20 07:17] LABS: CALC OSMOLALITY 275 mosm/kg (275-300); CARBON DIOXIDE 24.1 mmol/L (21.0-32.0); CHLORIDE - SERUM 109 mmol/L (98-107); CREATININE - SERUM 0.7 mg/dL (0.6-1.3); GLUCOSE 105 mg/dL (74-106); POTASSIUM - SERUM 3.8 mmol/L (3.5-5.1); SODIUM 139 mmol/L (136-145); UREA NITROGEN 8 mg/dL (7-18); eGFR NON AFRICAN AMERICAN 89 mL/min (90-120)
[2019-12-20 09:00] VITALS: BP 122/68
--- NOTE | 2019-12-20 09:10 | PN ---
PATIENT:BRUNO PASTOR MEDICAL RECORD: [id number] LOCATION:[facility] ADMISSION DATE: 12/09/19 PROGRESS NOTE DATE OF SERVICE: 12/19/2019 SUBJECTIVE: The patient's case was discussed with staff. She has no new complaint. OBJECTIVE: The patient is in good behavioral control. She has poor insight about her situation. She is dramatically better and will be referred to rehabilitation. ASSESSMENT: Bipolar, depressed. PLAN: The patient again is dramatically improved. Her long-term prognosis is guarded. There is no evidence of acute or direct dangerousness. TRANSINT:[id number] Voice Confirmation ID: [id number] DOCUMENT ID: [id number] DEBBIE MEEKS MD at 0910 CC: [id number] DICTATION DATE: 12/19/191641 HYDROELECTRIC COMPONENT MACHINIST: 12/20/19 0228 ADM IN [facility] [address] [id number]
--- NOTE | 2019-12-20 10:57 | NUR ---
REHAB PRESCREENING Rehab referral received and chart reviewed. Ms. Jack has not received PT to gait since her evaluation on 12/16/2019. Rehab will follow for PT gait today in order accurately assess admission criteria. PT was asked to notify rehab after gait today. Thank you for this referral! Frida Chun, MOBILITY ENGINEER Rehab PD
--- NOTE | 2019-12-20 11:18 | NUR ---
REHAB PRESCREENING Spoke with Abhijeet with PT who stated this patient was Min Assist to stand and ambulated 130 feet with a rolling walker. This patient has [employer] as her provider which requires a pre-auth for rehab benefits. In order to begin the pre-auth, she will need an OT evaluation. Spoke with Saji regarding need for consult. Thank you for this referral! Frida Chun, MILITARY TECHNICIAN Rehab PD
--- NOTE | 2019-12-20 18:07 | NUR ---
PT AWAKE AND ALERT X 4. PRESCRIBED MEDS PROVIDED ORDERED. MED COMPLIANT. NO BEHAVIORS NOTED. WILL CPOC.
[2019-12-20 20:27] VITALS: BP 129/42
--- NOTE | 2019-12-20 20:38 | NUR ---
RECEIVED IN DAYROOM. SITTING IN A CHAIR WITH PEERS AT HER SIDE. SOCIAL. CALM AND COOPERATIVE WITH CARE AND ASSESSMENT. ALERT AND ORIENTED. ENCOURAGE TO EXPRESS NEEDS. CONTINUES TO SIT WITH PEERS. CONTINUE PLAN OF CARE.
--- NOTE | 2019-12-21 05:31 | NUR ---
WOKE UP IN A FOUL MOOD THIS MORNING. CURSING TO HERSELF. SAYING SHE IS GOING TO KILL SOMEONE.
[2019-12-21 07:30] VITALS: BP 105/59
--- NOTE | 2019-12-21 08:00 | NUR ---
PT AWAKE AND ALERT X4. ASSESSMENT COMPLETED. PRESCRIBED MEDS PROVIDED ORDERED. MED COMPLIANT. NO BEHAVIORS NOTED. WILL CPOC.
--- NOTE | 2019-12-21 09:43 | NUR ---
Nutrition Follow-up: Diet: Regular (okay'd by ST) + Ensure TID PO intake: ~89% average x last 9 meals Last BM: 12/20/19. Wt: 132# (12/18/19); Admit Wt: 130# (12/10/19) Meds and labs reviewed Skin: PU to coccyx Recommend continue PO diet per STATIONARY ENGINEER APPRENTICE. RD following.
--- NOTE | 2019-12-21 11:20 | PN ---
PATIENT:BRUNO PASTOR MEDICAL RECORD: [id number] LOCATION:[facility] ADMISSION DATE: 12/09/19 PROGRESS NOTE DATE OF SERVICE: 12/20/2019 SUBJECTIVE: The patient's case was discussed with staff. She has no new complaint. OBJECTIVE: The patient is in good behavioral control with limited insight about her situation. She tolerates her medicines well. ASSESSMENT: Bipolar disorder, depressed. PLAN: The patient is in good behavioral control. She has dramatically improved and she is appropriate for inpatient rehab services and appears to be very motivated to improve. She has lost a great deal of strength through deconditioning since her hip injury and being confined to the behavioral unit. NTS:[id number] Voice Confirmation ID: [id number] DOCUMENT ID: [id number] DEBBIE MEEKS MD at 1120 CC: [id number] DICTATION DATE: 12/20/19 1616 PROJECT LEAD: 12/21/19 0031 ADM IN [facility] [address] [place] [address]
--- NOTE | 2019-12-21 11:52 | NUR ---
Spoke to Alf at [facility] to initiate a preauthorization for the ARU. Ref# [id number]. All clinicals were faxed for their review. Carolina Miller RN Clinical Liaison, Rehab
[2019-12-21] MEDS ORDERED: FEXOFENADINE HC60 MG PO (15:41)
[2019-12-21] MEDS ORDERED: LITHIUM CARBON300 MG PO (15:42)
[2019-12-21] MEDS ORDERED: ZOLOFT50 MG PO (15:43)
[2019-12-21] MEDS ORDERED: KLONOPIN0.5 MG PO (15:43)
[2019-12-21] MEDS ORDERED: DESERYL PO (15:43)
[2019-12-21] MEDS ORDERED: ZYPREXA5 MG PO (15:43)
[2019-12-21] MEDS ORDERED: Vitamin E PO (15:44)
--- NOTE | 2019-12-21 20:45 | NUR ---
B.) PT IS ALERT AND ORIENTED TO SELF, PLACE AND SITUATION. SHE IS CALM AND COOPERATIVE WITH STAFF. SHE IS TO BE D/C TO REHAB TONITE. I.) PROVIDED PM MEDICATIONS. REDIRECT NEEDED. R.) COMPLIANT WITH ALL MEDICATIONS. EASY TO REDIRECT. P.) WILL CONTINUE TO MONITOR.
--- NOTE | 2019-12-22 11:18 | PN ---
PATIENT:BRUNO PASTOR MEDICAL RECORD: [id number] LOCATION:[facility] ADMISSION DATE: 12/09/19 PROGRESS NOTE DATE OF SERVICE: 12/21/2019 SUBJECTIVE: The patient's case was discussed with staff. She has no new complaint. OBJECTIVE: The patient has dramatically improved and will be transitioned to rehabilitation services once the insurance company has given approval. I would not anticipate that being a problem since she did fracture her hip and was perfectly ambulatory before that. She is only 64 years old and they approved her before and apparently there are a number of obstacles with regard to what the insurance company wants before they will approve her, but I think she is appropriate and hopefully that this approval will be forthcoming and she can be transferred to rehabilitation. There are no mental health issues that would be an impediment to her participating in and benefiting from rehabilitation services. TRANSINT:[id number] Voice Confirmation ID: [id number] DOCUMENT ID: [id number] DEBBIE MEEKS MD at 1118 CC: [id number] DICTATION DATE: 12/21/19 1247 ELASTIC YARN TWISTER: 12/21/19 1614 DIS IN 12/21/19 [facility] [address] [id number]
== END 2019-12-21 20:50 | DRG 885 ==
LOC: D.PSYCH 15:46
PROVIDERS: Family Medicine; ADMIT Psychiatry & Neurology Psychiatry; ATTEND Psychiatry & Neurology Psychiatry
DX: F31.4 Bipolar disorder, current episode depressed, severe, without psychotic features (principal); S32.591A Other specified fracture of right pubis, initial encounter for closed fracture; N39.0 Urinary tract infection, site not specified; E87.1 Hypo-osmolality and hyponatremia; F41.9 Anxiety disorder, unspecified; D72.829 Elevated white blood cell count, unspecified; E78.5 Hyperlipidemia, unspecified; D64.9 Anemia, unspecified; M79.7 Fibromyalgia; G62.9 Polyneuropathy, unspecified; E55.9 Vitamin D deficiency, unspecified; J30.9 Allergic rhinitis, unspecified; G43.909 Migraine, unspecified, not intractable, without status migrainosus; H04.129 Dry eye syndrome of unspecified lacrimal gland; E87.6 Hypokalemia

== ENCOUNTER 2019-12-21 21:22 | Inpatient (IN) | payer MEDICARE ==
[~2019-12-21] VITALS: Ht 170.2 cm; Wt 61.2 kg
--- NOTE | 2019-12-21 21:15 | NUR ---
RECEIVED PT FROM [facility] USING WALKER ASSISTED BY HOSPITAL STAFF. PT IS ALERT AND ORIENTED X3. DENIES ANY PAIN. ORIENTED TO UNIT, BATHROOM, ROOM, FUNCTIONS OF REMOTE. NO CONCERNS VOICED. NO ACUTE DISTRESS NOTED. NO IV OR O2 NOTED. PLEASANT AFFECT. CALL LIGHT AND WATER WITHIN REACH. FALL PRECAUTIONS IN PLACE.
[~2019-12-21 21:22] MED LIST changes: +CYCLOGYL15 ML EACH EYE; +DESERYL PO; +FEXOFENADINE HC60 MG PO; +GABAPENTIN300 MG PO; +KLONOPIN0.5 MG PO; +LEVOFLOXACIN500 MG PO; +LITHIUM CARBON300 MG PO; +PRENAVITE1 TAB PO; +Vitamin E PO; +ZOLOFT50 MG PO; +ZYPREXA5 MG PO
--- NOTE | 2019-12-21 22:55 | NUR ---
PT LYING IN BED ON RIGHT SIDE EYES CLOSED RESTING. RR EVEN AND UNLABORED. CALL LIGHT AND URINAL WITHIN REACH. WILL CONTINUE TO MONITOR
[2019-12-22 01:55] VITALS: BP 117/68; BMI 21.2
--- NOTE | 2019-12-22 03:21 | NUR ---
PT LYING IN BED SUPINE EYES CLOSED RESTING. HOB ELEVATED. RR EVEN AND UNLABORED. CALL LIGHT WITHIN REACH. WILL CONTINUE TO MONITOR
--- NOTE | 2019-12-22 05:04 | NUR ---
ASSISTED PT TO RESTROOM AND BACK TO BED WITH SBA. DENIES ANY PAIN. NO OTHER NEEDS VOICED. CALL LIGHT AND WATER WITHIN REACH. FALL PRECAUTIONS IN PLACE. CPOC
[2019-12-22 06:47] LABS: BASOPHILS 0 % (0-2); EOSINOPHILS 1.5 % (0-7); HEMOGLOBIN 10.1 g/dL (12-16); IMMATURE GRANULOCYTES 0.2 % (0-5); LYMPHOCYTES 21.4 % (15-50); MCH 31.5 pg (26.0-34.0); MCHC 31.6 g/dL (31.0-37.0); MCV 99.7 fL (80.0-100.0); MEAN PLATELET VOLUME 9.1 fL (7.4-10.4); NEUTROPHILS 67.9 % (40-80); PLATELET COUNT 289 10x3/uL (130-400); RBC 3.21 10x6/uL (4.00-5.40); RDW 13.3 % (11.5-14.5); WBC 5.3 10x3/uL (4.8-10.8)
[2019-12-22 06:52] LABS: CALC OSMOLALITY 278 mosm/kg (275-300); CALCIUM 7.6 mg/dL (8.5-10.1); CARBON DIOXIDE 24.5 mmol/L (21.0-32.0); CHLORIDE - SERUM 111 mmol/L (98-107); CREATININE - SERUM 0.6 mg/dL (0.6-1.3); GLUCOSE 97 mg/dL (74-106); SODIUM 141 mmol/L (136-145); UREA NITROGEN 8 mg/dL (7-18); eGFR NON AFRICAN AMERICAN > 90 mL/min (90-120)
--- NOTE | 2019-12-22 08:00 | NUR ---
PT RESTING IN BED WITH EYES OPEN CALL LIGHT IN REACH WILL MONITER
[2019-12-22 08:10] VITALS: BP 148/71
--- NOTE | 2019-12-22 11:27 | NUR ---
PATIENT ADMITTED TO REHAB FROM [facility]. HER DISCHARGE PLANS ARE FOR HER TO RETURN HOME WITH HER SPOUSE. WILL CONTINUE TO FOLLOW WITH PATIENT AND WILL ASSIST WITH NEEDS.
[2019-12-22 13:27] VITALS: Ht 170.2 cm; Wt 61.2 kg
--- NOTE | 2019-12-22 17:52 | NUR ---
PT RESTING IN BED WITH EYES OPEN CALL LIGHT IN REACH WILL MONITER
--- NOTE | 2019-12-22 19:06 | NUR ---
PT IN BED ASLEEP, AROUSES EASILY TO VOICE, RESPIRATIONS EVEN/UNLABORED, NO IMMEDIATE NEEDS NOTED, FLUIDS/CALL LIGHT WITHIN REACH
[2019-12-22 19:34] VITALS: BP 121/73
--- NOTE | 2019-12-23 01:23 | NUR ---
PT IN BED ASLEEP, AROUSES EASILY TO VOICE, RESPIRATIONS EVEN/UNLABORED, NO IMMEDIATE NEEDS NOTED, FLUIDS/CALL LIGHT WITHIN REACH
--- NOTE | 2019-12-23 07:39 | NUR ---
SHE IS ALERT, TALKING. SHE IS C/O NECK PAIN. SHE IS WALKING WITH A WALKER TO THE BATHROOM. NEW MEPILEX APPLIED TO HER RIGHT BUTTOCKS. THE CALL LIGHT IS WITHIN REACH.
[2019-12-23 07:58] LABS: CALC OSMOLALITY 278 mosm/kg (275-300); CALCIUM 7.8 mg/dL (8.5-10.1); CARBON DIOXIDE 22.1 mmol/L (21.0-32.0); CHLORIDE - SERUM 110 mmol/L (98-107); CREATININE - SERUM 0.7 mg/dL (0.6-1.3); GLUCOSE 94 mg/dL (74-106); POTASSIUM - SERUM 3.7 mmol/L (3.5-5.1); SODIUM 141 mmol/L (136-145); UREA NITROGEN 8 mg/dL (7-18); eGFR NON AFRICAN AMERICAN 89 mL/min (90-120)
[2019-12-23 08:13] LABS: BASOPHILS 0 % (0-2); EOSINOPHILS 1.6 % (0-7); HEMATOCRIT 31.7 % (36.0-48.0); LYMPHOCYTES 27.4 % (15-50); MCH 31.9 pg (26.0-34.0); MCHC 31.5 g/dL (31.0-37.0); MCV 101.3 fL (80.0-100.0); MEAN PLATELET VOLUME 9.8 fL (7.4-10.4); PLATELET COUNT 275 10x3/uL (130-400); RBC 3.13 10x6/uL (4.00-5.40); RDW 13.6 % (11.5-14.5); WBC 4.4 10x3/uL (4.8-10.8)
--- NOTE | 2019-12-23 10:28 | NUR ---
UPDATES FAXED TO FISH JUAREZ WITH [employer], , AUTH. # [id number] WITH FAX CONFORMATION RECIEVED. WILL CONTINUE TO FOLLOW WITH PATIENT.
[2019-12-23 19:56] VITALS: BP 122/61
--- NOTE | 2019-12-23 20:00 | NUR ---
PATIENT RECEIVED SITTING UP IN BED. ASSESSMENT & VITAL SIGNS DONE. BED LOW. CALL LIGHT WITHIN REACH. WILL CONTINUE TO MONITOR.
--- NOTE | 2019-12-24 00:06 | NUR ---
I have reviewed this patient and I concur with the Shift Assessment completed by the Licensed Practical Nurse today this shift.
--- NOTE | 2019-12-24 00:37 | NUR ---
PATIENT EYES CLOSED. RESPIRATIONS 18 & EVEN. BED LOW. CALL LIGHT WITHIN REACH. WILL CONTINUE TO MONITOR.
--- NOTE | 2019-12-24 03:40 | NUR ---
PATIENT EYES CLOSED. RESPIRATIONS 18 & EVEN. BED LOW. CALL LIGHT WITHIN REACH. WILL CONTINUE TO MONITOR.
--- NOTE | 2019-12-24 06:06 | NUR ---
PATIENT MINIMAL ASSIST USING ROLLING WALKER TO BATHROOM. SLOW, STEADY GAIT. VOID ONLY. RETURNED TO LOW BED. CALL LIGHT WITHIN REACH. WILL CONTINUE TO MONITOR.
--- NOTE | 2019-12-24 06:13 | NUR ---
PATIENT C/O NOSE CONGESTION & HEADACHE. THIS NURSE SUGGESTED PATIENT ELEVATE HEAD. PATIENT STATED" IT TOOK MY HEADACHE AWAY. BED LOW. CALL LIGHT WITHIN REACH. WILL CONTINUE TO MONITOR.
[2019-12-24 07:00] VITALS: BP 141/76
--- NOTE | 2019-12-24 07:33 | NUR ---
SHE IS ALERT, TALKING. TOOK HER MEDICATIONS WITHOUT ANY PROBLEMS. GOING TO THE BATHROOM WITH A WALKER. THE CALL LIGHT IS WITHIN REACH.
[2019-12-24 19:51] VITALS: BP 111/67
--- NOTE | 2019-12-24 19:55 | NUR ---
PATIENT RECEIVED SITTING UP IN BED WATCHING TV. ASSESSMENT & VITAL SIGNS DONE. NO C/O PAIN OR DISTRESS. PATIENT STANDBY ASSIST INTO & OUT OF BED & WHEELCHAIR. STANDBY ON & OFF COMMODE. VOID & BM. PATIENT RETURNED TO LOW BED. CALL LIGHT & WATER WITHIN REACH. WILL CONTINUE TO MONITOR.
--- NOTE | 2019-12-25 04:48 | NUR ---
PATIENT USED CALL LIGHT FOR ASSIST TO BATHROOM. PATIENT STANDBY ASSIST USING ROLLING WALKER. VOID ONLY. RETURNED TO LOW BED. CALL LIGHT WITHIN REACH. WILL CONTINUE TO MONITOR.
--- NOTE | 2019-12-25 06:02 | NUR ---
PATIENT C/O HEADACHE. IMITREX GIVEN. BED LOW. CALL LIGHT WITHIN REACH. WILL CONTINUE TO MONITOR.
[2019-12-25 07:33] VITALS: BP 115/68
--- NOTE | 2019-12-25 08:21 | NUR ---
THIS NURSE ASSISSTED PATIENT TO THE BATHROOM. PT HAD BM. PT SAT UP IN THE CHAIR AND BREAKFAST DELIVERED TO ROOM
--- NOTE | 2019-12-25 19:40 | NUR ---
PATIENT RECEIVED SITTING UP IN BED WATCHING TV. ASSESSMENT & VITAL SIGNS DONE. BED LOW. CALL LIGHT WITHIN REACH. WILL CONTINUE TO MONITOR.
--- NOTE | 2019-12-25 19:45 | NUR ---
PATIENT USED CALL LIGHT FOR ASSIST. PATIENT USING ROLLING WALKER TO BATHROOM. STANDBY ASSIST. VOID ONLY. RETURNED USING ROLLING WALKER. STANDBY ASSIST. RETURNED TO LOW BED. CALL LIGHT WITHIN REACH. WILL CONTINUE TO MONITOR.
[2019-12-25 19:50] VITALS: BP 125/68
--- NOTE | 2019-12-25 20:43 | NUR ---
PATIENT MEDICATIONS GIVEN. PATIENT C/O HEAD & NECK ACHE. IMITREX GIVEN. CALL LIGHT WITHIN REACH. WILL CONTINUE TO MONITOR.
--- NOTE | 2019-12-26 04:25 | NUR ---
PATIENT USED CALL LIGHT FOR ASSIST. PATIENT STANDBY ASSIST TO BATHROOM. VOID ONLY. PATIENT AMBULATED BACK TO BED USING ROLLING WALKER. SLOW STEADY GAIT. STANDBY ASSIST BACK INTO LOW BED. CALL LIGHT WITHIN REACH. WILL CONTINUE TO MONITOR.
[2019-12-26 06:54] LABS: CALC OSMOLALITY 280 mosm/kg (275-300); CALCIUM 7.9 mg/dL (8.5-10.1); CARBON DIOXIDE 25.7 mmol/L (21.0-32.0); CHLORIDE - SERUM 110 mmol/L (98-107); CREATININE - SERUM 0.6 mg/dL (0.6-1.3); GLUCOSE 100 mg/dL (74-106); POTASSIUM - SERUM 3.3 mmol/L (3.5-5.1); SODIUM 142 mmol/L (136-145); UREA NITROGEN 7 mg/dL (7-18); eGFR NON AFRICAN AMERICAN > 90 mL/min (90-120)
[2019-12-26 07:18] LABS: BASOPHILS 0 % (0-2); EOSINOPHILS 1.4 % (0-7); HEMATOCRIT 33.8 % (36.0-48.0); HEMOGLOBIN 10.6 g/dL (12-16); IMMATURE GRANULOCYTES 0.5 % (0-5); LYMPHOCYTES 20.6 % (15-50); MCH 31.7 pg (26.0-34.0); MCHC 31.4 g/dL (31.0-37.0); MCV 101.2 fL (80.0-100.0); MEAN PLATELET VOLUME 9.2 fL (7.4-10.4); MONOCYTES 7.9 % (2-11); NEUTROPHILS 69.6 % (40-80); PLATELET COUNT 323 10x3/uL (130-400); RBC 3.34 10x6/uL (4.00-5.40); RDW 13.5 % (11.5-14.5); WBC 4.3 10x3/uL (4.8-10.8)
--- NOTE | 2019-12-26 08:19 | RHP ---
PATIENT: BRUNO PASTOR MEDICAL RECORD: [id number] ACCOUNT: [id number] LOCATION:[facility]1108 : 53 ADMISSION DATE: 12/21/19 REHABILITATION HISTORY AND PHYSICAL EXAMINATION POST ADMISSION PHYSICIAN EXAMINATION ADMITTING DIAGNOSIS: Pelvic fracture. HISTORY OF PRESENT ILLNESS: The patient is a 64-year-old female patient admitted from [facility] with an orthopedic nondisplaced right anterior pubic ramus fracture, presented to the ED after falling out of bed. She had immediate pain in her right hip and inability to bear weight. She was seen and evaluated. She was found to have a nondisplaced right inferior pubic ramus fracture with underlying osteoporosis. She was admitted for pain control. The patient does have a history of bipolar disorder. She is on Seroquel, trazodone, Topamax, Effexor, and Klonopin. She was admitted to the rehab, she came more depressed. She was seen and evaluated by [facility]. She was placed over there. She has actually done pretty good there. She is doing much better. She is now somewhat happy and in a normal mood and presents back to us for further care. She is pleasant. She is smiling. She is socially calm and cooperative at this time. She is able to feed herself. She does express her need though for more therapy for her hips. She has a progressive generalized weakness, especially in her right lower extremity affecting her tolerance to PT. She is very fatigued easily. She has limited flexion and extension in areas of her legs. She has ambulated 130 feet with PT using a rolling walker. She would like to regain her ability to do what she normally does and return home. COMORBIDITIES: Include weakness, bipolar disorder, anemia, fibromyalgia, constipation, neuropathy, vitamin D deficiency, migraine headaches. She has got a history of dry eye syndrome and electrolyte abnormalities. PAST MEDICAL HISTORY: Significant for bipolar disorder. She has got a history of osteoporosis, got a history of a pelvic fracture, falls, migraine headaches, recurrent UTIs, anemia, anxiety, and depression. PAST SURGICAL HISTORY: Includes a right total hip. She has had ankle surgery and gastric bypass. ALLERGIES: MORPHINE, DEMEROL, XYZAL, AND MANGOES. CURRENT MEDICATIONS: Include Zyprexa, she is on 5 mg at bedtime. She is on trazodone 100 mg at bedtime, Klonopin 0.5 mg at bedtime, vitamin E 400 units daily. She is on Zoloft 50 mg daily, vitamin daily, lithium carbonate 300 mg b.i.d. She is on Neurontin 300 mg t.i.d. She is on Flonase nasal spray daily. She is on Rocio 60 mg b.i.d., Voltaren gel 2 grams q.i.d. p.r.n. She is on Voltaren 75 mg b.i.d. She is on cyclosporine eye drops, vitamin D 5000 units daily, Imitrex 100 mg q.4 hours p.r.n., and MiraLax 17 g in 8 ounces of water daily. HABITS: No alcohol or tobacco use. FAMILY HISTORY: Noncontributory. SOCIAL HISTORY: The patient hopes to return back home with her , Morgan, who works at [employer] here in [place]. HISTORY AND PHYSICAL [id number] BRUNO PASTOR REVIEW OF SYSTEMS: GENERAL: Does complain of weakness and fatigue. HEENT: Denies cold, cough, or congestion. CARDIOVASCULAR: Denies any chest pain. PHYSICAL EXAMINATION: VITAL SIGNS: Stable, afebrile. GENERAL: A well-developed, alert female, in no distress, friendly upon exam. HEENT: Normocephalic and atraumatic. Mucosa moist. NECK: Supple. No lymphadenopathy. LUNGS: Clear at this time. No wheezing or rales. HEART: Regular rate and rhythm. No murmurs, rubs, or gallops. ABDOMEN: Soft, benign, and nondistended. Positive bowel sounds times 4. EXTREMITIES: No clubbing, cyanosis, or edema. She does have some pain to palpation along her pelvis. NEUROLOGIC: She is mainly intact. She does have some proximal muscle weakness. LABORATORY DATA: Her white count 5.3, H&H 10 and 32, and platelet count is 289. His sodium is 141, potassium is 4.0, BUN and creatinine of 8 and 0.6, and blood sugar is noted to be 97. ASSESSMENT: This is a 64-year-old female patient admitted to rehab with a working diagnosis of pelvic fracture. The patient has potential to make improvement. We instituted the following multidisciplinary therapies including, but not limited to physical, occupational, respiratory, speech, nutritional services, prosthetics and orthotics. Given his complex medical condition and risks for more complications, rehabilitation services cannot be provided regular or normal level of care such as half-way facility. PLAN: 1. Admit to [facility] for the following disciplines: A. Physical therapy to improve gait, all transfer skills and bed mobility to a modified independent level. B. Occupational therapy to improve activities of daily living. C. Case management to help with discharge planning and placement options. D. Nutrition to assist with nutritional needs. E. Rehabilitation nursing to assist in monitoring the patient's underlying medical conditions and to assist with any type of bowel or bladder management. 2. The patient's current medication and medical care will be continued. 3. Placed on standard fall precautions. 4. The patient's estimated length of stay is approximately 7-10 days. 5. We will discuss this patient during care team staff meeting this week. We will continue on her psych medicines at this time and her lithium, check levels if needed and I will see again in the a.m. TRANSINT:[id number] Voice Confirmation ID: [id number] DOCUMENT ID: [id number] FILIPPO notes whether there has been none or any medical/functional change since admission: - No change since preadmission screen. FILIPPO attests patient continues to be appropriate for IRF: HISTORY AND PHYSICAL [id number] BRUNO PASTOR - Continues to be appropriate. SYLVIA ALLEN MD at 0819 CC: [id number] DICTATION DATE: 12/22/19 0832 DUB ROOM ENGINEER: 12/22/19 0910 ADM IN [facility] [address] [place] [address]
--- NOTE | 2019-12-26 10:11 | NUR ---
Nutrition Follow-up: Chart reviewed, patient may be discharging tomorrow. Diet: Regular PO intake: 100% x last 9 meals Last BM: 12/25/19. Wt: 135# (12/22/19) Meds noted: probiotics. Labs noted: K 3.3(L) Skin: stage II PU to left and right buttocks Recommend continue current diet. RD following.
--- NOTE | 2019-12-26 13:20 | NUR ---
PER FISH WITH [employer] NEXT CLINICAL UPDATE DUE IS 12/29/19. WILL CONTINUE TO FOLLOW WITH PATIENT.
[2019-12-26 19:25] VITALS: BP 130/64
--- NOTE | 2019-12-26 20:00 | NUR ---
AWAKE AND ALERT. RESTING IN BED WITH RESPIRATIONS UNLABORED. NO ACUTE DISTRESS NOTED. CALL LIGHT IN REACH.
--- NOTE | 2019-12-26 22:55 | NUR ---
MEDICATED FOR C/O MIGRAINE WITH IMITREX. SEE MAR. WILL CONTINUE TO MONITOR.
--- NOTE | 2019-12-27 02:41 | NUR ---
SLEEPING WITH RESPIRATIONS UNLABORED. NO DISTRESS NOTED.
--- NOTE | 2019-12-27 04:59 | NUR ---
QUIET HOURS. ASSISTED TO BATHROOM AND BACK TO BED. NO ACUTE CHANGES IN CONDITION THIS SHIFT. NO DISTRESS NOTED.
--- NOTE | 2019-12-27 07:42 | NUR ---
PT RESTING IN BED WITH EYES OPEN CALL LIGHT IN REACH WILL MONITER
[2019-12-27 08:01] VITALS: BP 139/70
--- NOTE | 2019-12-27 09:52 | NUR ---
PATIENT DISCHARGING HOME TODAY WITH FAMILY. [facility] WILL PROVIDE THERAPY AT HOME. NO NEW DME NEEDED AT THIS TIME. DR. HERMELINDA MUNOZ 01/04/20 @ 11:15. JOSE MANUEL SIGNED, IMM SERVED AND EXPLAINED, ONE GIVEN TO PATIENT AND ONE FILED IN CHART. COMPARE DATA REVIEWED WITH PATIENT SHE VOICED UNDERSTANDING. DISCHARGE INSTRUCTIONS FAXED TO PCP, HOME HEALTH AND REVIEWED WITH PATIENT AND SPOUSE PER PRIMARY NURSE AND MYSELF.
--- NOTE | 2019-12-27 12:48 | NUR ---
PT DISCHARGED TO HOME VIA WHEELCHAIR WITH PT DISCHARGE SUMMARY AND MEDS REVIEWED WITH PT NO QUESTIONS OR CONCERNS. PT TOLERATED WELL.
--- NOTE | 2019-12-28 09:20 | NUR ---
FAXED [facility] TO [facility] , AUTH. # [id number] WITH FAX CONFORMATION ANCAVED
== END 2019-12-27 12:53 | disposition home health service (06) | DRG 560 ==
LOC: D.REHAB 21:22
PROVIDERS: ADMIT Emergency Medicine; ATTEND Emergency Medicine
DX: S32.501D Unspecified fracture of right pubis, subsequent encounter for fracture with routine healing (principal); N39.0 Urinary tract infection, site not specified; E87.1 Hypo-osmolality and hyponatremia; R53.1 Weakness; F31.9 Bipolar disorder, unspecified; D64.9 Anemia, unspecified; M79.7 Fibromyalgia; K59.00 Constipation, unspecified; G62.9 Polyneuropathy, unspecified; E55.9 Vitamin D deficiency, unspecified; F41.9 Anxiety disorder, unspecified; E78.5 Hyperlipidemia, unspecified; J30.9 Allergic rhinitis, unspecified; H04.129 Dry eye syndrome of unspecified lacrimal gland; E87.6 Hypokalemia